=== PATIENT | female | born 1975 | race African-American/Black ===

== ENCOUNTER 2018-10-19 01:58 | Emergency (ER) | payer OTHER ==
[~2018-10-19] VITALS: Ht 167.6 cm; Wt 77.1 kg
[~2018-10-19 01:58] MED LIST: GINSENG EXTRACT50 MG PO; KETO10TA2 PO; TUMERIC; VITAMIN E PO
[2018-10-19] MEDS ORDERED: INTESTINEX680 M1 PO (05:56)
[2018-10-19] MEDS ORDERED: PEPCID AC20 MG PO (05:56)
[2018-10-19] MEDS ORDERED: ZOFRAN ODT4 MG SL (05:56)
== END 2018-10-19 06:08 | disposition home or self-care (01) ==
LOC: ER 01:58
DX: K52.9 Noninfective gastroenteritis and colitis, unspecified (principal); R10.11 Right upper quadrant pain

== ENCOUNTER 2019-06-29 13:00 | Emergency (ER) | payer OTHER ==
[~2019-06-29] VITALS: Ht 167.6 cm; Wt 77.1 kg
[~2019-06-29 13:00] MED LIST changes: +INTESTINEX680 M1 PO; +PEPCID AC20 MG PO; +ZOFRAN ODT4 MG SL
[2019-06-29] MEDS ORDERED: BUTALBIT-ACETA1 EACH PO (14:16)
== END 2019-06-29 14:33 | disposition home or self-care (01) ==
LOC: ER 13:00
DX: G43.809 Other migraine, not intractable, without status migrainosus (principal)

== ENCOUNTER 2019-07-17 08:52 | Emergency (ER) | payer OTHER ==
[~2019-07-17] VITALS: Ht 167.6 cm; Wt 79.8 kg
[~2019-07-17 08:52] MED LIST changes: +BUTALBIT-ACETA1 EACH PO
[2019-07-17] MEDS ORDERED: DELSYM30 MG/5 M1 PO (11:12)
[2019-07-17] MEDS ORDERED: ZITHROMAX500 MG PO (11:12)
[2019-07-17] MEDS ORDERED: TESSALON PERLE100 M1 PO (11:12)
== END 2019-07-17 11:26 | disposition home or self-care (01) ==
LOC: ER 08:52
DX: B34.9 Viral infection, unspecified (principal)

== ENCOUNTER 2020-09-07 04:04 | Emergency (ER) | payer OTHER ==
[~2020-09-07] VITALS: Ht 167.6 cm; Wt 81.6 kg
[~2020-09-07 04:04] MED LIST changes: +DELSYM30 MG/5 M1 PO; +TESSALON PERLE100 M1 PO; +ZITHROMAX500 MG PO
[2020-09-07] MEDS ORDERED: HYDROCHLOROTHIA PO (04:39)
[2020-09-07] MEDS ORDERED: AMLODIPINE-OLM1 EACH PO (04:40)
== END 2020-09-07 11:26 | disposition home or self-care (01) ==
LOC: ER 04:04
DX: E86.0 Dehydration (principal); E87.8 Other disorders of electrolyte and fluid balance, not elsewhere classified; R42 Dizziness and giddiness

== ENCOUNTER 2023-01-16 09:58 | Emergency (ER) | payer OTHER ==
[~2023-01-16] VITALS: Ht 170.2 cm; Wt 90.7 kg
[~2023-01-16 09:58] MED LIST changes: +AMLODIPINE-OLM1 EACH PO; +HYDROCHLOROTHIA PO
== END 2023-01-16 11:40 | disposition home or self-care (01) ==
LOC: ER 09:58
DX: S80.872A Other superficial bite, left lower leg, initial encounter (principal); S80.871A Other superficial bite, right lower leg, initial encounter; W57.XXXA Bitten or stung by nonvenomous insect and other nonvenomous arthropods, initial encounter; Y93.89 Activity, other specified; Y92.89 Other specified places as the place of occurrence of the external cause; Y99.9 Unspecified external cause status; I10 Essential (primary) hypertension; Z91.040 Latex allergy status